=== PATIENT | female | born 1985 | race Caucasian/White ===

== ENCOUNTER 2016-12-12 00:43 | Emergency (ER) | payer SELFPAY ==
[2016-12-12 01:30] VITALS: BP 115/60
[2016-12-12] MEDS ORDERED: HYDR-971 PO (01:52)
--- NOTE | 2016-12-12 01:52 | PHYS DOC ---
Past History Past Medical History: No Pertinent History Past Surgical History: No Surgical History Alcohol Use: None Drug Use: None Adult General Chief Complaint Chief Complaint: BACK INJURY HPI HPI Patient is a 31-year-old female who is approximately 3 months presents here today complaining of left shoulder pain that she believes started after playing on a water slide approximately week ago. Patient reports she's been taking Tylenol and ibuprofen without any relief. Patient has any fevers shakes chills nausea vomiting diarrhea chest pain shortness of breath. Patient has any abdominal pain. Patient is requesting something stronger than Tylenol ibuprofen to help her with her pain. Patient's physical exam was significant for tenderness to palpation to her left scapula. Patient has reducible pain with range of motion to her shoulder. Patient reports that certain positions feel better. Patient denies any shortness of breath. Patient has any hemoptysis. Patient does not present with signs or symptoms O be consistent with pulmonary embolism. Assessment and plan 31-year-old female with back pain. Patient is . I have advised patient that any medication other than Tylenol may not be considered 100% safe for her . Patient reports that she is in so much pain that she does not care to this point and is demanding relief of pain despite risks to her unborn baby. I have advised patient of the risks and benefits and we will respect patient's decision and we will initiate pain management with Lortab. Patient was advised to follow-up with her primary care physician/OB doctor. Review of Systems Review of Systems Constitutional: Denies fever or chills [] Eyes: Denies change in visual acuity, redness, or eye pain [] All other review systems are negative except as documented in history of present illness portion. Current Medications Current Medications Current Medications Medications (Trade) Dose Ordered Sig/Karen Start Time Stop Time Status Last Admin Dose Admin Acetaminophen/ Hydrocodone Bitart (Lortab 5/325) 1 tab 1X ONCE 12/12/16 02:00 12/12/16 02:01 UNV Allergies Allergies Allergies Coded Allergies Type Severity Reaction Last Updated Verified haloperidol Allergy Intermediate Unknown 02/04/16 Yes Physical Exam Physical Exam Constitutional: Well developed, well nourished, no acute distress, non-toxic appearance. [] HENT: Normocephalic, atraumatic, bilateral external ears normal, oropharynx moist, no oral exudates, nose normal. [] Eyes: PERRLA, EOMI, conjunctiva normal, no discharge. [] Neck: Normal range of motion, no tenderness, supple, no stridor. [] Cardiovascular:Heart rate regular rhythm, no murmur [] Lungs & Thorax: Bilateral breath sounds clear to auscultation [] Abdomen: Bowel sounds normal, soft, no tenderness, no masses, no pulsatile masses. [] Skin: Warm, dry, no erythema, no rash. [] Back: No tenderness, no CVA tenderness. [] Extremities: No tenderness, no cyanosis, no clubbing, ROM intact, no edema. [] Neurologic: Alert and oriented X 3, normal motor function, normal sensory function, no focal deficits noted. [] Psychologic: Affect normal, judgement normal, mood normal. [] EKG EKG [] Radiology/Procedures Radiology/Procedures [] Course & Med Decision Making Course & Med Decision Making Pertinent Labs and Imaging studies reviewed. (See chart for details) [] Dragon Disclaimer Dragon Disclaimer This chart was dictated in whole or in part using Voice Recognition software in a busy, high-work load, and often noisy Emergency Department environment. It may contain unintended and wholly unrecognized errors or omissions. Departure Departure: Impression: Primary Impression: Additional Impressions: Muscle strain Mechanical back pain Disposition: 01 HOME, SELF-CARE Condition: STABLE Referrals: SOUMYA LUGO (PCP) Patient Instructions: ABCs of , Back Pain in , Back Pain, Adult Scripts Hydrocodone Bit/Acetaminophen (NORCO 5-325 TABLET) 1 Each Tablet 1 TAB PO PRN Q6HRS Y for PAIN, #12 TAB 0 Refills Prov: MARIO HONG MD 12/12/16 Problem Qualifiers MARIO HONG MD Dec 12, 2016 01:52
[2016-12-12] MEDS ORDERED: HYDROcodone/APAP 5/325MG 1 TAB TABLET PO ONE (02:15)
== END 2016-12-12 02:10 | disposition home or self-care (01) ==
LOC: ER 00:43
DX: O9A.211 Injury, poisoning and certain other consequences of external causes complicating pregnancy, first trimester (principal); S46.912A Strain of unspecified muscle, fascia and tendon at shoulder and upper arm level, left arm, initial encounter; M54.89 Other dorsalgia; Z3A.00 Weeks of gestation of pregnancy not specified; Z88.8 Allergy status to other drugs, medicaments and biological substances; X58.XXXA Exposure to other specified factors, initial encounter; Y93.18 Activity, surfing, windsurfing and boogie boarding; Y99.8 Other external cause status; Y92.89 Other specified places as the place of occurrence of the external cause
CPT/HCPCS: 81025; 99283

== ENCOUNTER 2017-01-02 04:40 | Emergency (ER) | payer SELFPAY ==
[~2017-01-02] VITALS: Ht 180.3 cm; Wt 85.8 kg
[~2017-01-02 04:40] MED LIST: HYDR-971 PO
[2017-01-02] MEDS ORDERED: HYDR25TA PO (05:15)
--- NOTE | 2017-01-02 05:15 | PHYS DOC ---
Past History Past Medical History: No Pertinent History Past Surgical History: No Surgical History Alcohol Use: None Drug Use: None Adult General Chief Complaint Chief Complaint: INSECT BITE HPI HPI Patient is a 31 year old female who presents with complaint of possible insect bites. Patient states that she has been noticing multiple lesions present on her upper extremities and neck. Patient states his symptoms have been worsening over the past 2 days. Patient states that she is having significant itching at this time. Patient has been treating her symptoms with hydrocortisone which she states has not been helping. Patient has not taken any other medications for her symptoms. The patient denies any other symptoms. Due to persistent itching the patient came to the emergency department for evaluation. She is also unsure what is biting her and wanted to be checked as she wanted to make sure it wasn' t something serious. Review of Systems Review of Systems Constitutional: Denies fever or chills [] Eyes: Denies change in visual acuity, redness, or eye pain [] HENT: Denies nasal congestion or sore throat [] Respiratory: Denies cough or shortness of breath [] Cardiovascular: Denies chest pain or edema [] GI: Denies abdominal pain, nausea, vomiting, bloody stools or diarrhea [] : Denies dysuria or hematuria [] Musculoskeletal: Denies back pain or joint pain [] Integument: Skin rash, pruritus [] Neurologic: Denies headache, focal weakness or sensory changes [] Allergies Allergies Allergies Coded Allergies Type Severity Reaction Last Updated Verified haloperidol Allergy Intermediate Unknown 02/04/16 Yes Physical Exam Physical Exam Constitutional: Well developed, well nourished, no acute distress, non-toxic appearance. [] HENT: Normocephalic, atraumatic, bilateral external ears normal, oropharynx moist, no oral exudates, nose normal. [] Skin: Warm, dry, multiple excoriated wheal lesions involving bilateral forearms and upper arms and the neck, lesion is not present on the chest, back, or lower extremities. [] Back: No tenderness, no CVA tenderness. [] Extremities: No tenderness, no cyanosis, no clubbing, ROM intact, no edema. [] Neurologic: Alert and oriented X 3, normal motor function, normal sensory function, no focal deficits noted. [] Current Patient Data Vital Signs Vital Signs Date Time Temp Pulse Resp B/P (MAP) Pulse Ox O2 Delivery O2 Flow Rate FiO2 7/10/17 06:00 74 16 104/44 (64) 99 Room Air 01/02/17 04:40 97.5 EKG EKG Not performed [] Radiology/Procedures Radiology/Procedures Not performed [] Course & Med Decision Making Course & Med Decision Making Pertinent Labs and Imaging studies reviewed. (See chart for details) Patient was given 50 mg of Benadryl in the emergency department. The patient's lesions appear consistent with insect bites. Advised to continue on Benadryl as needed for itching. The patient was provided a prescription for Atarax to have filled in case the Benadryl was not helping with her itching. Advised follow-up in 3-4 days of patient's primary doctor and return to emergency department for any worsening symptoms. Patient was understanding and in agreement with treatment plan. Dragon Disclaimer Dragon Disclaimer This chart was dictated in whole or in part using Voice Recognition software in a busy, high-work load, and often noisy Emergency Department environment. It may contain unintended and wholly unrecognized errors or omissions. Departure Departure: Impression: Primary Impression: Insect bites Additional Impression: Pruritus Disposition: 01 HOME, SELF-CARE Condition: IMPROVED Referrals: SOUMYA LUGO (PCP) Patient Instructions: Insect Bite Additional Instructions: Follow-up with your primary doctor in 3-4 days of symptoms are not improving. Return to the emergency department for any worsening symptoms. Scripts Hydroxyzine Hcl (HYDROXYZINE HCL) 25 Mg Tablet 1 TAB PO TID Y for ITCHING, #30 TAB Prov: JAYDEN CASPER MD 01/02/17 Problem Qualifiers Primary Impression: Insect bites Encounter type: initial encounter Qualified Codes: W57.XXXA - Bitten or stung by nonvenomous insect and other nonvenomous arthropods, initial encounter JAYDEN CASPER MD Jan 02, 2017 05:15
[2017-01-02] MEDS ORDERED: diphenhydrAMINE HCL 25 MG CAPSULE PO ONE (05:30)
[2017-01-02 06:00] VITALS: BP 104/44
== END 2017-01-02 06:03 | disposition home or self-care (01) ==
LOC: ER 04:40
DX: S50.862A Insect bite (nonvenomous) of left forearm, initial encounter (principal); S50.861A Insect bite (nonvenomous) of right forearm, initial encounter; S10.96XA Insect bite of unspecified part of neck, initial encounter; S40.862A Insect bite (nonvenomous) of left upper arm, initial encounter; S40.861A Insect bite (nonvenomous) of right upper arm, initial encounter; L29.9 Pruritus, unspecified; Z88.8 Allergy status to other drugs, medicaments and biological substances; W57.XXXA Bitten or stung by nonvenomous insect and other nonvenomous arthropods, initial encounter; Y93.89 Activity, other specified; Y99.8 Other external cause status; Y92.89 Other specified places as the place of occurrence of the external cause
CPT/HCPCS: 99283; Q0163